=== PATIENT | male | born 1990 | race Caucasian/White ===

== ENCOUNTER 2019-09-01 00:57 | Emergency (ER) | payer BC ==
[2019-09-01] MEDS ORDERED: Ibuprofen 400 MG Tab PO ONE (01:56)
[2019-09-01] MEDS ORDERED: Acetaminophen/oxyCODONE 325-5 MG Tab PO ONE (01:56)
[2019-09-01] MEDS ORDERED: Diphtheria,Pertussis(Acell),Tetanus Vaccine 0.5 ML Syringe IM ONE (01:57)
[2019-09-01] MEDS ORDERED: Ibuprofen 600 MG Tab ONE (02:03)
[2019-09-01] MEDS ORDERED: Bacitracin Oint 1 GM U/D Packet TOP ONE (02:36)
[2019-09-01] MEDS ORDERED: Bacitracin Oint 1 GM U/D Packet ONE (02:37)
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
== END 2019-09-01 03:25 | disposition home or self-care (01) ==
LOC: MW.ED 00:57
DX: T23.242A Burn of second degree of multiple left fingers (nail), including thumb, initial encounter (principal); F17.210 Nicotine dependence, cigarettes, uncomplicated; Z23 Encounter for immunization; W39.XXXA Discharge of firework, initial encounter
CPT/HCPCS: 10140; 16020; 90471; 90715; 99283; A9270

== ENCOUNTER 2019-11-19 08:25 | Day surgery (SDC) | payer BC ==
[~2019-11-19 08:25] MED LIST: Lactated Ringers 1,000 ML IV SCH; Lidocaine 2% 5 ML SDV ONE; Midazolam 1 MG/ML 2 ML SDV ONE; Propofol 200 MG/20 ML SDV ONE; Sodium Chloride 0.9% 10 ML SDV IV PRN; Sodium Chloride 0.9% 10 ML Syringe FLUSH PRN; Sodium Chloride 0.9% 2.5 ML Syringe FLUSH PRN; fentaNYL 100 MCG/2 ML SDV ONE
--- NOTE | 2019-11-19 09:33 | PCM.PREANE ---
Preanesthetic Assessment - Anesthesia/Transfusion/Family Hx Anesthesia History: Prior Anesthesia Without Reaction Family History of Anesthesia Reaction: No Transfusion History: No Prior Transfusion(s) - Review of Systems General: No Symptoms Pulmonary: No Symptoms Cardiovascular: No Symptoms Neurological: No Symptoms Other: Reports: None - Physical Assessment NPO Status Date: 11/18/19 Vital Signs: Last Vital Signs Temp 97.5 F 11/19/19 09:06 Pulse 54 L 11/19/19 09:06 Resp 16 11/19/19 09:06 BP 135/84 11/19/19 09:06 Pulse Ox 95 11/19/19 09:06 Height: 6 ft 5 in Weight: 101.605 kg ASA Class: 2 Mental Status: Alert & Oriented x3 Airway Class: Mallampati = 2 Dentition: Reports: Normal Dentition ROM/Head Extension: Full Lungs: Clear to Auscultation, Normal Respiratory Effort Cardiovascular: Regular Rate, Regular Rhythm - Allergies Allergies/Adverse Reactions: Allergies Allergy/AdvReac Type Severity Reaction Status Date / Time No Known Allergies Allergy Verified 11/19/19 09:04 - Blood Blood Available: No - Anesthesia Plan Pre-Op Medication Ordered: None - Acknowledgements Anesthesia Type Planned: General Anesthesia Pt an Appropriate Candidate for the Planned Anesthesia: Yes Alternatives and Risks of Anesthesia Discussed w Pt/Guardian: Yes Pt/Guardian Understands and Agrees with Anesthesia Plan: Yes Additional Comments: pmh: smoker plan: tiva PreAnesthesia Questionnaire - Past Health History Medical/Surgical History: Denies Medical/Surgical History Gastrointestinal History: Reports: Hemorrhoids Dermatologic History: Reports: Other (See Below) Other Dermatologic History: frequent cold sores - Past Surgical History Head Surgeries/Procedures: Reports: None GI Surgical History: Reports: Appendectomy - SUBSTANCE USE Smoking Status *Q: Current Some Day Smoker Tobacco Use Within Last Twelve Months: Cigarettes, Snuff/Dip Days Per Week of Alcohol Use: 7 Number of Drinks Per Day: 4 Total Drinks Per Week: 28 Recreational Drug Use History: No - HOME MEDS Home Medications: Home Meds valACYclovir [Valtrex] 2,000 mg PO BID PRN 10/09/19 [History] - CURRENT (IN HOUSE) MEDS Current Meds: Current Medications Lactated Ringer's (Ringers, Lactated) 1,000 mls @ 125 mls/hr IV ASDIRECTED WES Last Admin: 11/19/19 09:03 Dose: 125 mls/hr Documented by: Sodium Chloride (Saline Flush) 10 ml FLUSH ASDIRECTED PRN PRN Reason: Keep Vein Open Sodium Chloride (Saline Flush) 2.5 ml FLUSH ASDIRECTED PRN PRN Reason: Keep Vein Open Sodium Chloride (Saline Flush) 10 ml FLUSH ASDIRECTED PRN PRN Reason: Keep Vein Open Sodium Chloride (Saline Flush) 2.5 ml FLUSH ASDIRECTED PRN PRN Reason: Keep Vein Open Sodium Chloride (Normal Saline) 10 ml IV ASDIRECTED PRN PRN Reason: IV Use Discontinued Medications Fentanyl (Sublimaze) Confirm Administered Dose 100 mcg .ROUTE .STK-MED ONE Stop: 11/19/19 07:08 Lidocaine (Xylocaine-Mpf 2%) Confirm Administered Dose 5 ml .ROUTE .STK-MED ONE Stop: 11/19/19 07:07 Midazolam HCl (Versed 1 Mg/Ml) Confirm Administered Dose 2 mg .ROUTE .STK-MED ONE Stop: 11/19/19 07:07 Propofol (Diprivan 20 Ml) Confirm Administered Dose 400 mg .ROUTE .STK-MED ONE Stop: 11/19/19 07:07
[2019-11-19] MEDS ORDERED: Glycopyrrolate 0.2 MG/ML SDV ONE ×2 (10:21→10:24)
--- NOTE | 2019-11-19 10:52 | PCM.OPNOTE ---
- General Post-Op/Procedure Note Date of Surgery/Procedure: 11/19/19 Operative Procedure(s): Diagnostic colonoscopy Findings: Grade IV hemorrhoids Pre Op Diagnosis: Change in bowel habits Post-Op Diagnosis: Grade IV hemorrhoids Anesthesia Technique: MAC Primary Surgeon: Santa Cuevas Condition: Good
--- NOTE | 2019-11-19 11:12 | PCM.POSTAN ---
POST ANESTHESIA ASSESSMENT - MENTAL STATUS Mental Status: Alert, Oriented - VITAL SIGNS Vital Signs: Last Vital Signs Temp 97.5 F 11/19/19 09:06 Pulse 70 11/19/19 11:00 Resp 15 11/19/19 11:00 BP 116/76 11/19/19 11:00 Pulse Ox 94 L 11/19/19 11:00 - RESPIRATORY Respiratory Status: Respiratory Rate WNL, Airway Patent, O2 Saturation Stable - CARDIOVASCULAR CV Status: Pulse Rate WNL - GASTROINTESTINAL GI Status: No Symptoms - POST OP HYDRATION Hydration Status: Adequate & Stable
--- NOTE | 2019-11-19 11:12 | PCM48HPAN ---
Post Anesthesia Note - EVALUATION WITHIN 48HRS OF ANESTHETIC Vital Signs in Normal Range: Yes Patient Participated in Evaluation: Yes Respiratory Function Stable: Yes Airway Patent: Yes Cardiovascular Function Stable: Yes Hydration Status Stable: Yes Pain Control Satisfactory: Yes Nausea and Vomiting Control Satisfactory: Yes Mental Status Recovered: Yes Vital Signs: Last Vital Signs Temp 97.5 F 11/19/19 09:06 Pulse 70 11/19/19 11:00 Resp 15 11/19/19 11:00 BP 116/76 11/19/19 11:00 Pulse Ox 94 L 11/19/19 11:00
--- NOTE | 2019-11-20 23:29 | OR ---
SURGEON: SANTA CUEVAS MD DATE OF PROCEDURE: 11/19/2019 PREOPERATIVE DIAGNOSIS: Change in bowel habits. POSTOPERATIVE DIAGNOSIS: Grade 4 hemorrhoids. PROCEDURE PERFORMED: Diagnostic colonoscopy. PRIMARY SURGEON: Santa Cuevas MD ANESTHESIA: MAC. INSTRUMENT USED: Olympus colonoscope. EXTENT OF EXAM: To the cecum. PREPARATION: Good. LIMITATIONS: None. INDICATIONS FOR EXAMINATION: The patient is a 29-year-old male who presented to my clinic with complaints of changing bowel habits. The patient and I discussed the options. The patient and I decided on the need for diagnostic colonoscopy to rule out any intracolonic disease. The patient and I discussed the procedure, expected perioperative course, and risks. He verbalized understanding and wishes to proceed. PROCEDURE IN DETAIL: The patient was brought into the endoscopy suite and placed in a left lateral decubitus position. A time-out was completed verifying the patient's name, age, date of , allergies, and procedure to be performed. Monitored anesthesia care was induced and continuous oxygen was provided via nasal cannula throughout the procedure. After adequate sedation was achieved, a digital rectal exam was performed. The patient was noted to have a 3-column grade 4 hemorrhoids. The largest column of his hemorrhoid was the left lateral side. A well-lubricated colonoscope was then inserted into the rectum and advanced under direct visualization to the level of the cecum. The cecum was identified by both visual and anatomic landmarks. A photograph was taken of the cecal cap as well as with the scope retroflexed within the cecum. The scope was then fully withdrawn while examining the color, texture, anatomy, and integrity of the mucosa from the cecum to the anal canal. I was able to partially intubate the terminal ileum and the mucosa within the TI appeared normal. A biopsy was taken of the cecal cap. The colonic mucosa overall appeared normal. Random biopsies were taken of the transverse colon, sigmoid colon, as well as the rectum. The scope was retroflexed within the rectum to allow visualization of the anal canal opening. Other than the hemorrhoids, no other pathology was seen. A photograph was taken. The scope was then fully withdrawn and the procedure was terminated. The cecum to anus time was 7 minutes. The patient tolerated the procedure well and was transferred to the PACU in stable condition. ENDOSCOPIC DIAGNOSIS: Grade 4 hemorrhoids. RECOMMENDATIONS: We will have the patient follow up in clinic to discuss hemorrhoidal disease as well as his biopsy results in 2 weeks. LIZ / RIGOBERTO /[id number]
== END 2019-11-19 11:30 | disposition home or self-care (01) ==
LOC: MW.SDS 08:25
PROVIDERS: ATTEND Surgery
DX: K64.3 Fourth degree hemorrhoids (principal); K62.89 Other specified diseases of anus and rectum; F17.210 Nicotine dependence, cigarettes, uncomplicated
CPT/HCPCS: 45380; 88305; J2001; J2250; J2704; J3010; J3490; J7120; 00811

== ENCOUNTER 2022-05-14 20:09 | Emergency (ER) | payer SELFPAY ==
[2022-05-14] MEDS ORDERED: Diazepam 5 MG Tab PO ONE (20:26)
[2022-05-14] MEDS ORDERED: Sodium Chloride 0.9% 2.5 ML Syringe FLUSH PRN (20:26)
[2022-05-14] MEDS ORDERED: Sodium Chloride 0.9% 10 ML Syringe FLUSH PRN (20:26)
[2022-05-14 21:23] LABS: CARBON DIOXIDE,CO2 28.5 mmol/L (21.0-32.0); POTASSIUM,K 3.5 mmol/L (3.5-5.1)
[2022-05-14] MEDS ORDERED: Ketorolac 30 MG/ML SDV IVPUSH ONE (21:55)
[2022-05-14] MEDS ORDERED: oxyCODONE 5 MG Tab PO ONE (22:02)
== END 2022-05-14 23:38 | disposition home or self-care (01) ==
LOC: MW.ED 20:09
DX: R07.9 Chest pain, unspecified (principal); R06.02 Shortness of breath; Z72.0 Tobacco use
CPT/HCPCS: 36415; 71045; 80053; 84484; 85025; 93005; 99285; A9270; J3490; 93010; 99284